=== PATIENT | female | born 2000 | race Hispanic/Latino ===

== ENCOUNTER 2023-12-19 23:24 | Emergency (ER) | payer OTHER ==
[~2023-12-19] VITALS: Ht 142.2 cm; Wt 38.6 kg
[2023-12-19 23:44] VITALS: BP 114/52; PULSE 74; RESP 20; O2SAT 98
[2023-12-19] MEDS: ACETAMINOPHEN 325 MG TAB PO STA (23:50)
[2023-12-19] MEDS: IBUPROFEN 600 MG TABLET PO STA (23:50)
[2023-12-19] MEDS ORDERED: AMOX875T2 PO (23:58)
== END 2023-12-20 00:14 | disposition home or self-care (01) ==
LOC: EDH 23:24
DX: H66.91 Otitis media, unspecified, right ear (principal)

== ENCOUNTER 2024-09-24 18:20 | Emergency (ER) | payer SELFPAY ==
[~2024-09-24] VITALS: Ht 142.2 cm; Wt 44.0 kg
[~2024-09-24 18:20] MED LIST: AMOX875T2 PO
[2024-09-24 19:06] LABS: APPEARANCE,URINE CLEAR (CLEAR); BILIRUBIN,URINE NEGATIVE (NEGATIVE); COLOR,URINE LIGHT-YELLOW (YELLOW); GLUCOSE, URINE (UA) NEGATIVE (NEGATIVE); KETONES,URINE NEGATIVE (NEGATIVE); LEUKOCYTE ESTERASE ,URINE 25 Leu/uL (NEGATIVE); NITRATE,URINE NEGATIVE (NEGATIVE); OCCULT BLOOD,URINE NEGATIVE (NEGATIVE); PH,URINE 5.5 (5.0-8.0); PROTEIN,URINE NEGATIVE (NEGATIVE); UROBILINOGEN,URINE 0.2 mg/dL (0.2-1.0)
[2024-09-24 19:07] LABS: ADD UA MICROSCOPIC YES
[2024-09-24 19:08] LABS: BASOPHILS # (AUTO) 0.05 K/uL (0.00-0.20); BASOPHILS % (AUTO) 0.5 % (0.0-5.0); EOSINOPHILS # (AUTO) 0.17 K/uL (0.00-0.70); EOSINOPHILS % (AUTO) 1.6 % (0.0-8.0); HEMATOCRIT 35.4 % (36-48); IMMATURE GRANULOCYTE ABSOLUTE 0.04 K/uL (0-1); LYMPHOCYTES # (AUTO) 3.9 K/uL (1.0-4.8); LYMPHOCYTES % (AUTO) 36.7 % (21.0-51.0); MEAN CORPUSCULAR HEMOGLOBIN 28.9 pg (27.0-33.0); MEAN CORPUSCULAR HGB CONC 33.3 g/dL (32.0-36.0); MEAN CORPUSCULAR VOLUME 86.8 fL (79-99); MONOCYTES # (AUTO) 0.5 K/uL (0.1-1.0); MONOCYTES % (AUTO) 4.8 % (3.0-13.0); PLATELET COUNT (AUTO) 340 K/uL (130-400); RED BLOOD CELL COUNT(AUTO) 4.08 MIL/uL (4.00-5.50); WHITE BLOOD COUNT (AUTO) 10.7 K/uL (4.8-10.8)
[2024-09-24 19:11] LABS: CREATININE 0.5 mg/dL (0.5-1.0); POTASSIUM 3.5 mmol/L (3.5-5.1)
[2024-09-24 19:18] LABS: MUCUS,URINE RARE LPF (None Seen); SQUAMOUS EPITHELIAL CELL,UR FEW /HPF (0-2)
--- NOTE | 2024-09-24 19:54 | HMCIMG ---
ULTRASOUND OF THE PELVIS ULTRASOUND ABD VASCULAR LIMITED INDICATION: Pelvic pain COMPARISONS: None TECHNIQUE: Transabdominal real-time sonographic images were acquired earlier, and subsequently made available for review. FINDINGS: The uterus measures 7.0 x 3.7 x 4.5 cm. The uterus is normal in echotexture and contour. Single intrauterine gestational sac measuring 2.0 cm corresponding to estimated sonographic gestational age of 7 weeks 1 days. 3.2 cm long by 0.7 cm wide abnormal subchorionic hypoechoic area demonstrated. No discrete pole demonstrated. cardiac activity was not demonstrated. The right ovary measures 2.0 x 1.4 x 2.1 cm. The right ovary is normal in size, shape and echogenicity. No right adnexal masses demonstrated. Color Doppler flow is normal throughout the right ovary. Spectral Doppler analysis demonstrates a normal waveform pattern. The left ovary measures 2.2 x 1.1 x 1.8 cm. The left ovary is normal in size, shape and echogenicity. No left adnexal masses demonstrated. Color Doppler flow is normal throughout the left ovary. Spectral Doppler analysis demonstrates a normal waveform pattern. No free pelvic fluid demonstrated. IMPRESSION: 1. Findings suggesting failed /blighted ovum. Correlation with beta-hCG levels and short-term follow-up sonographic imaging, if necessary. 2. Nearly 180 degrees subchorionic hemorrhage.
[2024-09-24 19:55] VITALS: BP 119/62; PULSE 81; RESP 18; TEMP 97.1; O2SAT 98
--- NOTE | 2024-09-24 20:25 | ERN ---
General Chief Complaint: Vaginal Bleeding Stated Complaint: 3MONTH BLEEDING Time Seen by MD: 18:21 Time Seen by Midlevel: 18:21 Source: patient History of Present Illness Initial Comments The patient is a 24-year-old female with no significant past medical history presenting to the emergency department for evaluation of vaginal bleeding and suprapubic abdominal cramping that started earlier today. Patient reports being approximately three months . She was not seen an OBGYN for this . Denies having any past medical history. The only medication she was taking on a daily basis is vitamins. Denies any other symptoms at this time Allergies: Coded Allergies: No Known Allergies (Unverified Allergy, Unknown, 12/19/23) Home Meds Active Scripts Amoxicillin (Amoxicillin) 875 Mg Tablet, 875 MG PO BID for 5 Days, #10 TAB Prov:TOMASZ FINNEY NP 12/19/23 Past Medical History Past Medical History: No Pertinent History Past Surgical History: None Female( History) LMP: Jun 10, 2024 : 1 Para: 0 ROS Dictation CONSTITUTIONAL: Negative except for HPI HEAD/FACE: Negative except for HPI EENT: Negative except for HPI RESPIRATORY: Negative except for HPI GASTROINTESTINAL/ABDOMINAL: Negative except for HPI GENITOURINARY: Negative except for HPI MUSCULOSKELETAL: Negative except for HPI INTEGUMENTARY: Negative except for HPI NEUROLOGICAL/PSYCH: Negative except for HPI HEMATOLOGIC/LYMPHATIC: Negative except for HPI All Systems Negative, Except as noted above. 13 point review of systems assessed and all negative except for above. Physical Exam Physical Exam Dictation Vital Signs reviewed General Appearance: Alert, oriented x 3, no acute distress, well developed, nourished. Head and Face: non-traumatic. Eyes: PERRL, pink conjunctivas, eyelid no trauma, anterior chamber with arcus senilis. Ears: Pinnas intact and no signs of trauma or erythema ear canals clear and no discharge TM no erythema Nose: No discharge, no bleeding. Oropharynx: Mouth normal, tongue pink, pharynx clear,no erythema, tonsils no exudates, no abscesses noted, mucous membrane moist Neck: Supple, non-tender, no thyromegaly, no masses, no JVD, no bruits Breast:Deferred Chest:No tenderness, no crepitus, no paradoxical movement, no retractions Lungs:Clear, well-ventilated, symmetric, no rales, no wheezing, no rhonchi, no stridor, good breath sounds bilaterally Heart: Regular rate, regular rhythm, no murmur, no gallops Vascular: no peripheral edema, Abdomen: Soft, positive bowel sounds, nondistended, no guarding, nontender, no rebound, no masses no hepatomegaly, no splenomegaly, no Brar's sign, no hernias. Rectal: Deferred Genital: Deferred Neurological: Normal speech, motor function intact, sensory function intact Musculoskeletal: Neck nontender, full range of motion, back nontender, full range of motion, Extremities: nontender, full range of motion Skin: Color pink, dry, no turgor, no rash, no lacerations, no abrasions, no contusions. Lymphatic: Deferred Results Laboratory and Microbiology Lab and Micro Result Laboratory Tests Test 09/24/24 18:52 09/24/24 18:57 Urine Color LIGHT-YELLOW (YELLOW) Urine Appearance CLEAR (CLEAR) Urine pH 5.5 (5.0-8.0) Urine Specific [place] 1.010 (1.001-1.031) Urine Protein NEGATIVE mg/dL (NEGATIVE) Urine Glucose (UA) NEGATIVE mg/dL (NEGATIVE) Urine Ketones NEGATIVE mg/dL (NEGATIVE) Urine Occult Blood NEGATIVE (NEGATIVE) Urine Nitrate NEGATIVE (NEGATIVE) Urine Bilirubin NEGATIVE mg/dL (NEGATIVE) Urine Urobilinogen 0.2 mg/dL (0.2-1.0) Urine Leukocyte Esterase 25 Chris/uL (NEGATIVE) H Urine RBC 2-5 /HPF (0-1) H Urine WBC 2-5 /HPF (0-1) H Urine Squamous Epithelial Cells FEW /HPF (0-2) Urine Bacteria None /HPF (None Seen) White Blood Count 10.7 K/uL (4.8-10.8) Red Blood Count 4.08 MIL/uL (4.00-5.50) Hemoglobin 11.8 g/dL (12.0-16.0) L Hematocrit 35.4 % (36-48) L Mean Corpuscular Volume 86.8 fL (79-99) Mean Corpuscular Hemoglobin 28.9 pg (27.0-33.0) Mean Corpuscular Hemoglobin Concent 33.3 g/dL (32.0-36.0) Red Cell Distribution Width 13.0 % (11.0-15.5) Platelet Count 340 K/uL (130-400) Mean Platelet Volume 9.4 fL (7.5-10.5) Immature Granulocyte % (Auto) 0.4 % (0-1) Neutrophils (%) (Auto) 56.0 % (40.0-77.0) Lymphocytes (%) (Auto) 36.7 % (21.0-51.0) Monocytes (%) (Auto) 4.8 % (3.0-13.0) Eosinophils (%) (Auto) 1.6 % (0.0-8.0) Basophils (%) (Auto) 0.5 % (0.0-5.0) Neutrophils # (Auto) 6.0 K/uL (1.8-7.7) Lymphocytes # (Auto) 3.9 K/uL (1.0-4.8) Monocytes # (Auto) 0.5 K/uL (0.1-1.0) Eosinophils # (Auto) 0.17 K/uL (0.00-0.70) Basophils # (Auto) 0.05 K/uL (0.00-0.20) Absolute Immature Granulocyte (auto 0.04 K/uL (0-1) Nucleated Red Blood Cells 0.0 % (0.0-0.19) Sodium Level 136 mmol/L (136-145) Potassium Level 3.5 mmol/L (3.5-5.1) Chloride Level 99 mmol/L (101-111) L Carbon Dioxide Level 30 mmol/L (21-32) Blood Urea Nitrogen 6 mg/dL (7-18) L Creatinine 0.5 mg/dL (0.5-1.0) Glomerular Filtration Rate Calc 136 mL/min (>90) Random Glucose 91 mg/dL (70-105) Total Calcium 9.2 mg/dL (8.5-10.1) Human Chorionic Gonadotropin, Quant 6386 mIU/mL (0-5) H Labs Reviewed?: Yes MDM MDM: The patient is a 24-year-old female with no significant past medical history presenting to the emergency department for evaluation of vaginal bleeding and suprapubic abdominal cramping that started earlier today. Patient reports being approximately three months . She was not seen an OBGYN for this . Denies having any past medical history. The only medication she was taking on a daily basis is vitamins. Denies any other symptoms at this time. On physical examination the patient is in no acute distress. CBC and chemistries are stable. Her hCG quant is 6386. Her pelvic ultrasound has findings suggestive of a failed /blighted ovum. Correlation with beta hCG levels and short-term follow up sonographic imaging is necessary. There was also a subchorionic hemorrhage. This was discussed with the patient and her and all of their questions were answered. The patient will need to follow up with an OBGYN outpatient for repeat ultrasound testing and hCG testing. Patient agrees. She was advised to return to the ER if she develops any new or worsening symptoms. Differential diagnosis: Miscarriage, threatened , There are no social concerns with this patient. Prescription drug management Prescriptions will include: None Medical management and examination interpretation discussions were had by me with other qualified healthcare professionals as indicated for the patient's car e. ED Course Orders Procedure Category Date Status Time Cbc With Differential LAB 09/24/24 Complete 18:35 Basic Metabolic Panel LAB 09/24/24 Complete 18:35 Urinalysis Profile LAB 09/24/24 Complete 18:35 Hcg,Quantitative LAB 09/24/24 Complete 18:35 Us Ob <14 Weeks US 09/24/24 Resulted 18:35 Vital Signs Date Time Temp Pulse Resp B/P (MAP) Pulse Ox O2 Delivery O2 Flow Rate FiO2 09/24/24 19:55 97.2 81 18 119/62 98 Room Air* 0 21 09/24/24 18:55 97.9 84 20 118/65 98 Room Air* 0 21 09/24/24 18:35 99.0 78 16 112/70 99 Room Air 0 DX & DISP Disposition: Discharge Departure Impression: Primary Impression: Blighted ovum Condition: Stable Additional Instructions: Your blood work today is stable. Your hCG quant is 6386. Your pelvic ultrasound is suggestive of the failed /blighted ovum. There was an estimated sonographic gestational age of seven weeks and one day no cardiac activity noted. Coordination with beta hCG level was any short- term follow up ultrasound is needed. You will need to follow up with an OBGYN for repeat ultrasound and repeat hCG testing. If you develop any new or worsening symptoms please report to the ER for further evaluation Time of Disposition: 20:21 I have reviewed the case, and I agree with, Diagnosis and Plan I performed the substantive portion of the visit. I have reviewed and personally made and approve the management plan that is documented in the note by myself or the JUAN MANUEL. I acknowledge for responsibility for the patient's management plan. ELISA ELAINE Sep 24, 2024 20:25 JAIME MAN DO Sep 26, 2024 07:09
== END 2024-09-24 20:31 | disposition home or self-care (01) ==
LOC: EDH 18:20
DX: O02.0 Blighted ovum and nonhydatidiform mole (principal); Z3A.01 Less than 8 weeks gestation of pregnancy; Z79.899 Other long term (current) drug therapy
CPT/HCPCS: 36415; 76801; 80048; 81001; 84702; 85025; 99284